=== PATIENT | female | born 1960 | race Caucasian/White ===

== ENCOUNTER 2018-12-29 09:16 | Day surgery (SDC) | payer OTHER ==
[~2018-12-29] VITALS: Ht 165.1 cm; Wt 55.0 kg
[2018-12-29 10:39] VITALS: Ht 165.1 cm; Wt 55.0 kg
[2018-12-29 11:11] VITALS: BP 144/79; PULSE 60; RESP 20
[2018-12-29] MEDS ORDERED: MIDAZOLAM 1 MG/ML 2 ML INJ ONE (12:17)
[2018-12-29] MEDS ORDERED: FENTAnyl 50 MCG/ML VIAL ONE (12:18)
[2018-12-29 12:30] VITALS: BP 116/76; PULSE 60; RESP 18
== END 2018-12-29 14:03 | disposition home or self-care (01) ==
LOC: GIL 09:16
PROVIDERS: ATTEND Internal Medicine Gastroenterology
DX: Z12.11 Encounter for screening for malignant neoplasm of colon (principal); D12.5 Benign neoplasm of sigmoid colon; K64.9 Unspecified hemorrhoids
CPT/HCPCS: 45380; 88305; J2250; J3010; Z7610